=== PATIENT | female | born 1975 | race Caucasian/White ===

== ENCOUNTER 2022-03-13 10:51 | Day surgery (SDC) | payer OTHER ==
[~2022-03-13] VITALS: Ht 167.6 cm; Wt 79.4 kg
[2022-03-13] MEDS ORDERED: fentaNYL citrate 0.05 MG/ML VIAL ONE (12:14)
[2022-03-13] MEDS ORDERED: LIDOCAINE 2% 100 MG/5 ML UJET TP ONE (12:14)
[2022-03-13] MEDS ORDERED: MIDAZOLAM 5 MG/5 ML VIAL ONE (12:14)
[2022-03-13] MEDS ORDERED: fentaNYL citrate 0.05 MG/ML VIAL IVP ONE (13:55)
[2022-03-13] MEDS ORDERED: MIDAZOLAM 2 MG/2 ML VIAL IVP ONE (13:55)
== END 2022-03-13 13:59 | disposition home or self-care (01) ==
LOC: MDS 10:51 → MMU 10:51 → MDS 13:59
PROVIDERS: ATTEND Internal Medicine Gastroenterology
DX: Z12.11 Encounter for screening for malignant neoplasm of colon (principal); R10.12 Left upper quadrant pain; K57.31 Diverticulosis of large intestine without perforation or abscess with bleeding; K21.9 Gastro-esophageal reflux disease without esophagitis; I10 Essential (primary) hypertension; F32.9 Major depressive disorder, single episode, unspecified; Z90.710 Acquired absence of both cervix and uterus; F17.210 Nicotine dependence, cigarettes, uncomplicated; Z20.822 Contact with and (suspected) exposure to COVID-19; Z79.899 Other long term (current) drug therapy
CPT/HCPCS: 36415; 43239; 45378; 86677; 87426; J2250; J3010